=== PATIENT | male | born 1960 | race African-American/Black ===

== ENCOUNTER 2016-11-18 09:06 | Emergency (ER) | payer SELFPAY ==
[~2016-11-18] VITALS: Ht 180.3 cm; Wt 150.0 kg
[2016-11-18 09:30] VITALS: BP 133/94
[2016-11-18 10:06] LABS: HEMATOCRIT. 39.9 % (42.0-52.0); HEMOGLOBIN. 13.1 g/dL (14.0-18.0); MEAN CORPUSCULAR HEMOGLOBIN 26.3 pg (28.0-32.0); MEAN CORPUSCULAR HGB CONC 32.9 g/dL (31.0-37.0); MEAN PLATELET VOLUME 7.5 fl (7.4-10.4); PLATELET 213 x1000/uL (130-400); RED BLOOD CELL COUNT 4.99 mill/uL (4.7-6.1); RED CELL DISTRIBUTION WIDTH 14.6 % (11.6-14.6); WHITE BLOOD COUNT 5.3 x1000/uL (4.5-11.0)
[2016-11-18 10:38] LABS: PLATELET ESTIMATE NORMAL
== END 2016-11-18 11:20 | disposition home or self-care (01) ==
LOC: ER 09:08
DX: I83.91 Asymptomatic varicose veins of right lower extremity (principal)
CPT/HCPCS: 36415; 85025; 99283; Z7610